=== PATIENT | female | born 1995 | race Caucasian/White ===

== ENCOUNTER 2017-05-11 09:08 | Emergency (ER) | payer OTHER ==
[~2017-05-11] VITALS: Wt 57.3 kg
[~2017-05-11 09:08] MED LIST: FERR240T9 PO; PREN-39 PO
[2017-05-11] MEDS ORDERED: CETI10CA PO (11:27)
[2017-05-11] MEDS ORDERED: PRED20TA PO (11:27)
--- NOTE | 2017-05-11 11:30 | ERD ---
ER Documentation Chief Complaint Date/Time DATE: 05/11/17 TIME: 11:29 Chief Complaint lips swelling, resolving now w red bumps on skin HPI This 21-year-old female presents with some swelling in her upper lip. Yesterday while driving. She has itching and burning. She denies any trauma, new potential allergens or previous history of allergies. She denies any fevers or shortness of breath. ROS All systems reviewed and are negative except as per history of present illness. Medications Home Meds Active Scripts Cetirizine Hcl* (Zyrtec*) 10 Mg Capsule, 10 MG PO DAILY, #15 TAB.CHEW Prov:DEVYN REYES MD 05/11/17 Prednisone* (Prednisone*) 20 Mg Tab, 40 MG PO DAILY for 3 Days, TAB Prov:DEVYN REYES MD 05/11/17 Reported Medications Ferrous Gluconate (Iron) 1 Tab Tablet, 1 TAB PO DAILY 11/29/14 Vits W-Ca,Fe,Fa(<1MG) ( Vitamins) 1 Tab Tablet, 1 TAB PO DAILY 09/11/14 Allergies Allergies: Coded Allergies: No Known Allergy (Unverified , 11/26/14) Physical Exam Vitals Vital Signs Date Time Temp Pulse Resp B/P Pulse Ox O2 Delivery O2 Flow Rate FiO2 05/11/17 09:16 98.0 87 20 107/59 98 Physical Exam Const: []Alert, [id number], talkative. Head: Atraumatic Eyes: Normal Conjunctiva ENT: Normal External Ears, Nose and Mouth.Slight swelling in the left upper lip. No airway compromise no erythema or vesicles. Neck: Full range of motion..~ No meningismus. Resp: Clear to auscultation bilaterally Cardio: Regular rate and rhythm, no murmurs Abd: Soft, non tender, non distended. Normal bowel sounds Skin: No petechiae or Purpura. Scattered healing papules in the upper extremities without erythema, warmth, vesicles Back: No midline or flank tenderness Ext: No cyanosis, or edema Neur: Awake and alert Psych: Normal Mood and Affect Procedures/MDM Patient presents with some left upper lip swelling which appears to be prudent improving. May be an unspecified allergic reaction. There is no evidence of airway compromise, anaphylaxis, cellulitis. She also has some lesions which appear to be insect bites. She will be treated with short course of prednisone and Zyrtec and further observation at home. Patient should return for fevers, difficulty breathing, difficulty swallowing, new worsening symptoms or primary doctor this week. Departure Diagnosis: Primary Impression: Allergic reaction Encounter type: initial encounter Qualified Code: T78.40XA - Allergic reaction, initial encounter Condition: Stable Patient Instructions: Allergic Reaction, Other (Local) Additional Instructions: Likely unspecified allergic reaction. Recheck for new or worsening symptoms- fever, difficulty breathing, new symptoms or primary care doctor. DEVYN REYES MD May 11, 2017 11:30
== END 2017-05-11 11:52 | disposition home or self-care (01) ==
LOC: FTE 09:08
DX: R22.0 Localized swelling, mass and lump, head (principal)
CPT/HCPCS: 99283